=== PATIENT | male | born 1970 | race Caucasian/White ===

== ENCOUNTER 2024-07-04 11:10 | Outpatient (CLI) | payer OTHER, SELFPAY ==
--- NOTE | 2024-07-04 17:30 | CRLHL7_ITS ---
For Patients: As a result of the Century Cures Act, medical imaging exams and procedure reports are released immediately into your electronic medical record. You may view this report before your referring provider. If you have questions, please contact your health care provider. INDICATION: Low back pain radiating to the right hip. TECHNIQUE: Sagittal and axial T1 sagittal and axial T2 sagittal STIR images. Findings : Sagittal alignment within normal limits. Schmorl`s node endplate changes in the low thoracic and lumbar endplates. At T12-L1 degenerative disc desiccation minor annular bulging and stenosis of the spinal canal or neural foramen. At L1-2 central disc desiccation no disc herniation or stenosis the spinal canal or neural foramen. Approximately 5 cm cystic-appearing structure within the left renal hilus suggestive of a renal cyst or possible hydronephrosis. At L2-3 degenerative disc desiccation slight disc space narrowing. Mild annular bulging and marginal endplate spurring mild central canal stenosis neural foramen are adequately patent. At L3-4 degenerative disc desiccation. Minor annular bulging and anterior endplate spurring and mild facet enlargement no stenosis of the spinal canal neural foramen are adequately patent. At L4-5 degenerative disc desiccation small right posterolateral disc protrusion contacts the traversing right L5 and exiting right L4 nerve roots. No high-grade stenosis. At L5-S1 normal disc height and disc hydration without disc herniation or stenosis the spinal canal or neural foramen. IMPRESSION: 1. Three level lumbar disc degeneration between L2 and L5 as described above. 2. At L4-5 shallow right posterior lateral disc protrusion contacts but does not compress traversing right L5 and exiting right L4 nerve roots. 3. Mild annular bulging at L3-4 and L2-3. Mild central canal narrowing at L2-3. 4. Left renal cyst versus hydronephrosis. Suggest renal ultrasound for clarification Dictated by Jam Malcolm MD @ 07/05/2024 10:24:56 AM (Electronically Signed)
== END 2024-07-04 11:11 | disposition home or self-care (01) ==
PROVIDERS: PCP Family Medicine; Visit Provider Nurse Practitioner Family
DX: M54.50 Low back pain, unspecified (principal); M51.369 Other intervertebral disc degeneration, lumbar region without mention of lumbar back pain or lower extremity pain; M51.26 Other intervertebral disc displacement, lumbar region; N28.9 Disorder of kidney and ureter, unspecified
CPT/HCPCS: 72148